=== PATIENT | female | born 2000 | race Caucasian/White ===

== ENCOUNTER 2021-01-09 22:13 | Emergency (ER) | payer SELFPAY ==
[~2021-01-09] VITALS: Ht 157.5 cm; Wt 52.0 kg
[2021-01-09] MEDS ORDERED: DIPHENHYDRAMINE 50MG CAPSULE PO ONE (23:15)
[2021-01-09] MEDS ORDERED: PREDNISONE 20MG TABLET PO ONE (23:15)
[2021-01-09] MEDS ORDERED: FAMOTIDINE 20MG TABLET PO SCH (23:15)
[2021-01-10] MEDS ORDERED: DIPH25CA83 MT (02:04)
[2021-01-10] MEDS ORDERED: P20 MT (02:04)
[2021-01-10] MEDS ORDERED: FAMO-135 MT (02:04)
[2021-01-10 02:46] VITALS: BP 91/63
== END 2021-01-10 02:47 | disposition home or self-care (01) ==
LOC: ER 22:13
DX: T78.40XA Allergy, unspecified, initial encounter (principal); X58.XXXA Exposure to other specified factors, initial encounter; J45.909 Unspecified asthma, uncomplicated
CPT/HCPCS: 99284; J7512; Q0163